=== PATIENT | female | born 1975 | race Caucasian/White ===

== ENCOUNTER 2019-01-23 10:39 | Emergency (ER) | payer OTHER ==
[2019-01-23 10:42] VITALS: BP 135/66; PULSE 74; TEMP 98.1; BMI 20.5
--- NOTE | 2019-01-23 10:51 | PDOC ---
History of Present Illness - General Chief Complaint: Nausea Stated Complaint: NAUSEA X 1 WEEK Time Seen by Provider: 01/23/19 10:48 - History of Present Illness Initial Comments: 01/23/19 11:17 Chief complaint: Nausea History of present illness: Patient complains of nausea for approximately one week, worse after eating, no vomiting or diarrhea. She has 2 children has not otherwise been exposed to potential GI illness. Review of systems: Denies URI symptoms, sore throat, cough, chest pain, shortness of breath, hematemesis, melena, bloody stool. Admits vague epigastric discomfort but denies chidi pain, menses regular, has been on a diet since October and has lost 8-10 pounds, but has always been thin. Remainder systems reviewed and found to be negative Past medical history: Healthy female, 2 children via normal spontaneous vaginal delivery, otherwise no significant medical or surgical problems past her present , no medications other than vitamins. Social history: Denies tobacco or drugs, admits occasional social alcohol, none recently. Stay at home mom. Fully active and without disability. Denies recent increase in stress or anxiety, or depressive symptoms Family history: Reviewed and noncontributory including early coronary artery disease, metabolic disease including diabetes, and cancer Physical exam: Alert and oriented well-developed well-nourished no acute distress cheerful and cooperative Afebrile, vital signs normal No pallor or icterus. PERRLA, fundi benign, ENT clear Neck supple without bruit mass or nodes Chest clear to P&A CV regular without murmur rub or gallop pulses full and symmetric no JVD or edema no bruits Abdomen nondistended. Bowel sounds normal. Soft without mass tenderness organomegaly. No CVAT Neurological intact Extremities no CCE Skin clear, no rash, adequate turgor and wet mucous membranes Impression: Mild, isolated symptoms of nausea without vomiting or diarrhea, worse after eating. This suggests either gastroenteritis or dyspepsia/early PUD. There is no abdominal tenderness suggestive of significant intra-abdominal disease, specifically no right upper quadrant tenderness, Mullen sign, or liver enlargement or tenderness Plan: CBC and chemistries, symptomatic treatment and consider further imaging depending on results. Past History - Past Medical History Allergies/Adverse Reactions: Allergies Allergy/AdvReac Type Severity Reaction Status Date / Time No Known Allergies Allergy Verified 01/23/19 10:40 Home Medications: Ambulatory Orders Famotidine [Pepcid] 40 mg PO DAILY #14 tablet 01/23/19 Ondansetron [Zofran Odt -] 4 - 8 mg SL TID PRN #20 od.tablet 01/23/19 COPD: No - Suicide/Smoking/Psychosocial Hx Smoking History: Never smoked Hx Alcohol Use: Yes (OCASIONAL) Drug/Substance Use Hx: No *Physical Exam - Vital Signs Last Vital Signs Temp Pulse Resp BP Pulse Ox 98.1 F 74 18 135/66 100 01/23/19 10:40 01/23/19 10:40 01/23/19 10:40 01/23/19 10:40 01/23/19 10:40 ED Treatment Course - LABORATORY CBC & Chemistry Diagram: 01/23/19 11:17 01/23/19 11:00 *DC/Admit/Observation/Transfer Diagnosis at time of Disposition: Viral gastroenteritis, Dyspepsia - Discharge Dispostion Disposition: HOME Condition at time of disposition: Stable Decision to Admit order: No - Prescriptions Prescriptions: Famotidine [Pepcid] 40 mg PO DAILY #14 tablet Ondansetron [Zofran Odt -] 4 - 8 mg SL TID PRN #20 od.tablet PRN Reason: Nausea - Referrals Referrals: Leo Maher MD [Primary Care Provider] - 1 week Sid Randolph MD [Staff Physician] - 1 week - Patient Instructions Printed Discharge Instructions: DI for Viral Gastroenteritis -- Adult, DI for Dyspepsia, Natural and Alternative Treatment Study Report: [place] and Dyspepsia Additional Instructions: Return to ER if there is worsening abdominal pain, vomiting, or diarrhea. Otherwise take medication as directed for symptoms. If symptoms fail to resolve, see your primary physician or endodontic assistant, to whom you have been referred today. - Post Discharge Activity
[2019-01-23 11:29] LABS: BASO % 0.8 % (0-2.0); EOS % 4.4 % (0-4.5); HEMATOCRIT 39.2 % (32.4-45.2); LYMPH % 23.7 % (8-40); MCH 29.9 pg (25.7-33.7); MCHC 33.1 g/dl (32.0-36.0); MEAN CELL VOLUME 90.3 fl (80-96); MEAN PLT VOLUME 9.2 fl (7.5-11.1); MONO % 11.2 % (3.8-10.2); NEUT % 59.9 % (42.8-82.8); PLATELET COUNT 210 K/MM3 (134-434); RBC 4.34 M/mm3 (3.60-5.2); RDW 12.3 % (11.6-15.6); WHITE BLOOD COUNT 4.3 K/mm3 (4.0-10.8)
[2019-01-23] MEDS ORDERED: ONDANSETRON *ODT* 4 MG TABLET SL ONE (11:42)
[2019-01-23 11:44] LABS: ALBUMIN 4.8 g/dl (3.4-5.0); ALK PHOS 50 U/L (45-117); ANION GAP 9 MMOL/L (8-16); BILIRUBIN,TOTAL 1.2 mg/dl (0.2-1); BLOOD UREA NITROGEN 10 mg/dl (7-18); CALCIUM 9.5 mg/dl (8.5-10); CHLORIDE 104 mmol/L (98-107); CO2 25 mmol/L (21-32); CREATININE 0.9 mg/dl (0.55-1.3); GLUCOSE,RANDOM 83 mg/dl (74-106); POTASSIUM 4.1 mmol/L (3.5-5.1); SGOT/AST 23 U/L (15-37); SGPT/ALT 19 U/L (13-61); SODIUM 138 mmol/L (136-145); TOT PROT 7.5 g/dl (6.4-8.2)
[2019-01-23] MEDS ORDERED: ONDANSETRON *ODT* 4 MG TABLET ONE (11:44)
== END 2019-01-23 12:55 | disposition home or self-care (01) ==
LOC: FER 10:39
DX: R10.13 Epigastric pain (principal); A08.4 Viral intestinal infection, unspecified
CPT/HCPCS: 36415; 80053; 81003; 81025; 85025; 99282-25; Q0162